=== PATIENT | female | born 1960 | race Caucasian/White ===

== ENCOUNTER 2017-11-20 01:51 | Inpatient (IN) | payer OTHER, MEDICARE ==
[~2017-11-20] VITALS: Ht 172.7 cm; Wt 64.9 kg
[~2017-11-20 01:51] MED LIST: ASPIRIN EC81 M1 PO; BACLOFEN10 M1 PO; CITRACAL + D M1 EACH PO; COLACE100 M1 PO; LEXAPRO5 M1 PO; LOPRESSOR100 M1 PO; MULTIPLE VITAM1 EACH; VITAMIN D31000 UNI1 PO
--- NOTE | 2017-11-20 11:36 | Operative Report ---
Operative/Inv Procedure Report Surgery Date: 11/20/17 Name of Procedure: C2-5 posterior laminectomy, C3-5 posterior lateral mass fusion with thiago oasys screws, rods, autograft, allograft, intraop fluoroscopy Pre-Operative Diagnosis: C2-5 stenosis with myelopathy Post-Operative Diagnosis: same Estimated Blood Loss: 50ml to 100ml Surgeon/Deckhand Fishing Vessel: Jaleesa BOB,Royer Klein MD Anesthesia: general endotracheal tube Monitors: neurophysiologic monitoring IV Fluids: 1500cc replaced with crystalloid Implants: thiago oasys Urine Output: 200cc via avitia Drains: med HV Specimens: none Complications: none Condition: stable Operative Indication: 57yo woman s/p extensive anterior cervical corpectomy and fusion C4-7 in past now with adjacent level high grade spinal stenosis at C2-5 and recurrent and progressive myelopathy now presents for posterior cervical decompression and lateral mass fusion after failed conservative treatment. Operative/Procedure Note Note: Patient was taken the operating room. After appropriate patient identification and surgical timeout, the patient had neurophysiologic monitoring leads placed and baseline recordings were obtained. She then underwent the smooth induction of general endotracheal anesthesia without incident with the neck in a neutral position. Monitoring was stable. A Avitia catheter was sterilely inserted. DVT prophylaxis was utilized throughout the case. Patient was given 2 g of IV kezol and 1 g of IV vancomycin in preoperative prophylaxis. With all tubes and lines secured in the blood pressure well controlled, the patient was placed in the [place] 3 point head fixation device was applied and carefully turned to the prone position on gel rolls taking care to ensure that all pressure points were well-padded. The neck was maintained in a neutral to slightly lordotic position and fixed to the table. Monitoring was stable with the patient to the prone position. Shoulders were retracted downward with tape. The posterior neck was widely prepped and draped in usual sterile fashion using povidone iodine solution. A vertical midline skin incision was marked from C2- C6 and infiltrated with 10 mL of local anesthetic. Skin incision was made with a 10 blade knife. Dissection was carried down through the subcutaneous tissue with the Bovie the ligamentum nuchae. Ligament nuchae was incised in the midline and a subperiosteal dissection of the cervical paravertebral muscles was performed bilaterally with the Bovie exposing underlying spinous processes lamina and facet joints bilaterally. We extended the exposure to the lateral aspect of the lateral masses from C3 to C5 bilaterally and self-retaining retractors were placed beneath the muscle. A [place] 4 elevator was placed in the presumed C3/4 facet joint and a lateral cervical x-ray was obtained and confirmed this to be the correct level. With the levels verified, we proceeded to decorticating the lateral masses and curetting out the facet joints. The drill was used to decoritcate the facet joints with the drill prior to screw insertion. Entry points for the lateral mass screws were selected from C3 to C5 bilaterally, medial to the midpoint of the lateral mass and marked with a jarvis bur. Screw holes were then drilled using the [employer] to a depth of 14 mm and with a 30 lateral and rostral angulation. All holes were palpated with a ball-tipped probe and showed no evidence of cortical breakthrough. A laminectomy extending from the inferior C2 to the rostral C5 level was performed using combination of the bone scalpel and Kerrison rongeurs. Thickened ligamentum flavum was stripped with the Kerrisons and An excellent decompression of the dural sac was completed and monitoring was stable. Bone was passed off to the back table and saved for arthrodesis. Hemostasis was obtained with irrigation and flowseal in the lateral epidural gutters. The facet joints of C3 4, C4 5 were packed with morcellated autograft packed bilaterally as well as over the dorsal aspect of the lateral masses which were also decorticated. We then placed a 3.5 x 14 mm screws bilaterally from C3 to C5 without complication. 40 mm titanium rods were then gently lordosed and top loaded into the screws from C3 to C5 bilaterally. Locking caps were placed. Screws were then finally tightened with an antitorque device. Meticulous hemostasis was achieved using combination of bipolar and Surgifoam. Neurophysiologic monitoring was noted to be stable following the decompression and placement of the instrumentation. Final xrays were obtained and confirmed excellent position of the instrumentation. The wound was copiously irrigated with sterile saline irrigation. A medium DWAYNE drain was placed in the wound and secured to the skin with a 2-0 nylon suture and then began wound closure. Deep muscle was reapproximated with interrupted 0 Vicryl suture. 20cc of exparel was used in the muscle. The ligamentum nuchae was reapproximated with interrupted 0 Vicryl suture and the subcutaneous tissue was irrigated and closed in layers with a 2-0 Vicryl suture. The skin was closed with silvino. The wound was cleaned and dried. Bacitracin and a sterile occlusive dressing was placed. Placed in a hard cervical collar, taken out of the [place] and returned to the supine position. She was taken out of the [place], awakened, extubated, and taken to PACU in stable condition. She was noted to be moving all 4 extremities at the completion of the case. All sponge, needle, and instrument counts were correct at the completion of the procedure 3. Neurophysiologic monitoring was stable. Discharge Disposition: PACU
--- NOTE | 2017-11-20 15:50 | RADIOLOGY REPORT ---
EXAMINATION: CR ABDOMEN/INTRAOPERATIVE FLUOROSCOPY CLINICAL INDICATION: C3 laminectomy with posterior fusion. COMPARISON: None. TECHNIQUE/FINDINGS: Fluoroscopic equipment was dedicated to the operating room for the performance of an intraoperative procedure. 3 spot films were acquired and are archived in PACS. Please refer to operative notes for procedural detail. FLUOROSCOPY TIME: 12 seconds IMPRESSION: Administrative dictation for intraoperative fluoroscopy and image archiving in PACS. Please refer to operative notes for details.
--- NOTE | 2017-11-20 16:51 | Operative Report ---
Operative/Inv Procedure Report Surgery Date: 11/20/17 Name of Procedure: C2 C3-C4-C5 laminectomy C3-4-5 posterior lateral segmental instrumentation using [place] lateral mass screws C3-4-5 posterior lateral fusion using autograft Placed in [place] fixation Fluoroscopic guidance Pre-Operative Diagnosis: Cervical spondylosis and myelopathy Post-Operative Diagnosis: Same Estimated Blood Loss: 200 Surgeon/Acid Operator: Royer Lazcano MD,Sandie Munoz Anesthesia: general endotracheal tube Operative/Procedure Note Note: After the successful administration of general endotracheal anesthesia all lines tubes and monitors were placed by the anesthesia team. The patient positioned prone in [place] fixation with pressure points padded. Palpate the spinous process of C2 through C5 the patient was prepped and draped in usual standard fashion. 10 cc of lidocaine with epinephrine was infiltrated in subcu tissues. #10 blade used to incise the skin. This was deepened to the cervical fascia with electrocautery the midline cervical fascia was divided and subperiosteal dissection was carried out exposing the spinous process lamina C3-C4-C5. The underside of C2 was also exposed. We identified the C3-4 joint with fluoroscopic guidance. We then used a high-speed drill to drill bilaterally at the mid position of the lateral masses of C3-4 and 5. These were deepened with a 14 mm drill. There were tapped and all holes were palpated to ensure circumferential bone. We then used the bone scalpel to cut troughs in the lamina of C3-C4 superior aspect of C5. The spinal lamellar complex was taken off after the ligament of flavum was elevated with a Kerrison punch and resected. The bone was taken to the back table and morselized. We then used a Kerrison punch to remove the undersurface of the lamina of C2 to ensure the spinal cord could fall away from the anterior compression at the C3-4 level. We then placed 14 mm Tita screws in the lateral mass of C3-4-5 the lateral masses and facet joints were decorticated and packed with morselized autograft precontoured a 40 mm jean-paul secured in place with the set screws were tightened down with the torque limiting seasonal driver. All bleeding was controlled with bipolar cautery.. Gelfoam was placed over the dura. Motor and sensation are stable. There was an irrigated through separate stab incisions and a #7 DWAYNE drain was left in place. The wound was closed with 0 Vicryl for muscle and fascia 2-0 Vicryl the deep dermis and skin was closed with silvino. Dry sterile dressing was applied. At the end the case patient taken out of [place] fixation all needle counts, sponges, and instruments were correct.
--- NOTE | 2017-11-20 17:43 | Admission Core Measures ---
Acute Coronary Syndrome (CM) ACS Core Measures Acute Coronary Syndrome Diagnosis No Congestive Heart Failure (NEW) CHF Core Measures Congestive Heart Failure Diagnosis No Cerebrovascular Accident CVA Core Measures CVA/TIA Diagnosis No Venous Thromboembolism VTE Core Soni (View Protocol) VTE Risk Factors Surgery No Mechanical VTE Prophylaxis d/t N/A MechProphylax Ordered No VTE Pharm Prophylaxis d/t NA PharmProphylax ordered Problem List As ranked by this Provider includes Assessment & Plan 1. Stenosis of cervical spine with myelopathy HOME MEDS Home Med List Aspirin (Ecotrin*) 81 MG TABLET.DR 1 TAB PO DAILY ANTI COAG (Reported) Baclofen 10 MG TABLET 1 TAB PO TID CEREBRAL PALSY (Reported) Calcium Citrate/Vitamin D3 (Citracal + D Maximum Caplet) 315 MG-250 UNIT TABLET 1 TAB PO TID SUPPLEMENT (Reported) Cholecalciferol (Vitamin D3) (Vitamin D3) 1,000 UNIT CAPSULE 1 CAP PO TID SUPPLEMENT (Reported) Docusate Sodium (Colace) 100 MG CAPSULE 1 CAP PO D CONSTIPATION (Reported) Escitalopram Oxalate (Lexapro) 5 MG TABLET 1 TAB PO DAILY MOOD (Reported) Metoprolol Tartrate (Lopressor) 100 MG TABLET 1 TAB PO BID HTN (Reported)
--- NOTE | 2017-11-20 17:55 | PN- Neurosurgical ---
Subjective Subjective: POSTOP CHECK Patient reports hoarseness. Otherwise, pain is well controlled. Denies numbness, tingling, chest pain or sob. Tolerating ice chips. Denies ambulating since surgery. Offers no other complaints. Objective Vital Signs and I&Os Intake & Output 11/20 1600 11/20 0800 11/20 0000 11/19 1600 11/19 0800 11/19 0000 Intake Total Output Total Balance Patient 130 lb Weight Physical Exam: Vitals - afebrile, vss Gen - alert an oriented x3, accompained by sister with hard collar in place in nad HEENT - hard collar in place, scant dressing on posterior neck with DWAYNE in place with 20 cc serosang drainage Cardiac - S1S2, murmur noted Lungs - CTAB Ext - motor and sensory intact, 4 extremities with good 5/5 SERINA, no edema or calf pain Assessment/Plan Assessment/Plan 57 F w/ a hx of CP, HTN and prior C4-7 fusion in 2008 complicated by PE who is s /p C2-C5 posterior laminectomy, C3-5 posterior lateral mass fusion with thiago oasys screws, rods, autograft, allograft, intraop fluoroscopy secondary to C2-5 stenosis with myelopathy, recovering well Advance to regular diet IVF overnight Pain regimen prn Home meds ordered - asa 81 on hold DVT ppx - alps, hsq in am Keep brace in place OOB ambulate w/ RW (baseline) DWAYNE to bulb suction D/c avitia in am Encourage IS Core Measures Venous Thromboembolism VTE Risk Factors Surgery No Mechanical VTE Prophylaxis d/t N/A MechProphylax Ordered No VTE Pharm Prophylaxis d/t NA PharmProphylax ordered
[2017-11-20 18:06] VITALS: BP 150/70
[2017-11-20 19:37] VITALS: BP 162/80
[2017-11-20 21:25] VITALS: BP 162/82
[2017-11-20 23:00] VITALS: BP 160/80
[2017-11-21 04:21] VITALS: BP 156/80
--- NOTE | 2017-11-21 07:42 | PN- Neurosurgical ---
Subjective Subjective: Pt doing well. Reports mild incisional post neck pain cntrolled with tylenol. Objective Vital Signs and I&Os Vital Signs Date Time Temp Pulse Resp B/P B/P Pulse O2 O2 Flow FiO2 Mean Ox Delivery Rate 11/21 0421 97.7 72 20 156/80 100 11/20 2300 98.2 64 24 160/80 94 11/20 2125 98.3 56 20 162/82 95 11/20 2029 94 154/78 11/20 1937 98.3 42 20 162/80 95 Room Air 11/20 1806 98.3 91 20 150/70 94 Intake & Output 11/21 0811/21 0000 11/20 1600 11/20 0811/20 0000 11/19 1600 Intake Total 640 330 Output Total 1010 940 Balance -370 -610 Intake, IV 640 150 Intake, Oral 180 Output, 60 40 Drainage Output, Urine 950 900 Patient 64.864 kg 58.967 kg Weight Weight Reported by Patient Measurement Method Physical Exam: AF, VSS awake and alert incision with min serosanguinous stain on dressing, no active drainage and flat DWAYNE with 60cc last shift neuro exam is stable with spastic quadreparesis unchanged from preop william po last night avitia out this am no LE edema or calf tenderness Current Medications: Current Medications Sig/Laura Start time Last Medication Dose Route Stop Time Status Admin Acetaminophen 650 MG Q4P PRN 11/20 1445 AC 11/21 PO 0615 Acetaminophen 0 .STK-MED ONE 11/20 1117 DC IV Baclofen 10 MG TID 11/20 2100 AC 11/20 PO 2030 Bisacodyl 10 MG DAILY NEEDED PRN 11/20 1445 AC PA Cefazolin Sodium 2 GM IQ8 11/21 0800 AC N/A 1 UNIT IV 11/22 0759 Cefazolin Sodium 2,000 MG ONCE 11/20 0000 DC IV 11/20 2359 Diazepam 5 MG Q8P PRN 11/20 1445 AC PO Docusate Sodium 100 MG BID 11/20 2100 AC 11/20 PO 2030 Escitalopram Oxalate 5 MG DAILY 11/21 09 AC PO Fentanyl Citrate 0 .STK-MED ONE 11/20 1117 DC .ROUTE Heparin Sodium 5,000 UNIT Q8 11/21 0600 AC 11/21 (Porcine) SC 0615 Hydromorphone HCl 1 MG Q3P PRN 11/20 2230 AC IV Hydromorphone HCl 1 MG Q4-6 PRN PRN 11/20 1500 DC IV Hydromorphone HCl 0 .STK-MED ONE 11/20 1118 DC .ROUTE Ketamine HCl 0 .STK-MED ONE 11/20 1118 DC .ROUTE Meperidine HCl 0 .STK-MED ONE 11/20 1441 DC .ROUTE Metoprolol Tartrate 100 MG BID 11/20 2100 AC 11/20 PO 2029 Midazolam HCl 0 .STK-MED ONE 11/20 1118 DC .ROUTE Ondansetron HCl 4 MG Q6P PRN 11/20 1445 AC IV Oxycodone/ 1 TAB Q4P PRN 11/20 223 AC Acetaminophen PO Oxycodone/ 2 TAB Q4P PRN 11/20 1445 AC Acetaminophen PO Ramelteon 8 MG AT BEDTIME NEED.. 11/20 1445 AC PO Sodium Chloride 1,000 ML Q12H 11/20 1500 AC 11/21 IV 11/21 1459 0616 Trimethobenzamide HCl 200 MG Q6P PRN 11/20 1445 AC IM Assessment/Plan Assessment/Plan Pt POD1 s/p post cervical lami and fusion for recurrent stenosis and myelopathy and doing well. Plan: -OOB today -PT -HLIV -reg diet -DVT prophylaxis -cont DWAYNE until less than 20cc per shift, abx until drain out -ISC prn if no void after 6hrs from avitia out and prn after -dc planning as pt to go to rehab Core Measures Venous Thromboembolism VTE Risk Factors Surgery No Mechanical VTE Prophylaxis d/t N/A MechProphylax Ordered No VTE Pharm Prophylaxis d/t NA PharmProphylax ordered Attending MD Review Statement Attending Statement Attending MD Statement: examined this patient, discuss w/resident/PA/MEDICAL ART THERAPIST, discussed with family, discussed w/nursing
[2017-11-21 07:51] VITALS: BP 150/80
--- NOTE | 2017-11-21 11:54 | ULTRASOUND REPORT ---
EXAMINATION: US TRIPLEX OF LOWER EXTREMITIES, BILATERAL CLINICAL INFORMATION: Postop DVT COMPARISON: None TECHNIQUE: Color-flow triplex imaging with spectral analysis and compression Doppler were performed on the lower extremities. FINDINGS: There is a small segment of the popliteal vein demonstrating an echogenic focus along the anterior aspect of the vein consistent with a nonocclusive thrombus. The deep veins are otherwise unremarkable. There is no Horne's cyst. IMPRESSION: Findings compatible with a small nonocclusive thrombus age-indeterminate in the popliteal vein Patient reports having had DVT in the past. No prior venous imaging available This critical result was discussed with Estefania Yuan approximately 11:50 AM on 11/21/2017 and it was ascertained that the content and urgency of the report was understood at the time of direct communication.
[2017-11-21 12:39] VITALS: BP 120/70
--- NOTE | 2017-11-21 13:40 | Cons- Vascular Surgery ---
General Information and HPI Consulting Request Date of Consult: 11/21/17 Requested By: Jaleesa BOB,Sandie Munoz Reason for Consult: RLE DVT Source of Information: patient Exam Limitations: no limitations History of Present Illness: This is a 57-year-old female here status post posterior C2 through C5 laminectomy, C3 through C5 fusion by Dr. Lazcano. She is a history of hypertension, CP and a previous back surgery about 10 years ago which was complicated by a postop DVT and PE and stroke. Prior to this admission she had a bilateral preop venous duplex which showed no evidence of DVT. Now on postop day 1 a DVT study was ordered which showed a small nonocclusive thrombus in the right popliteal vein. Patient is asymptomatic Allergies/Medications Allergies: Coded Allergies: No Known Allergies (11/19/17) Home Med List: Aspirin (Ecotrin*) 81 MG TABLET.DR 1 TAB PO DAILY ANTI COAG (Reported) Baclofen 10 MG TABLET 1 TAB PO TID CEREBRAL PALSY (Reported) Calcium Citrate/Vitamin D3 (Citracal + D Maximum Caplet) 315 MG-250 UNIT TABLET 1 TAB PO TID SUPPLEMENT (Reported) Cholecalciferol (Vitamin D3) (Vitamin D3) 1,000 UNIT CAPSULE 1 CAP PO TID SUPPLEMENT (Reported) Docusate Sodium (Colace) 100 MG CAPSULE 1 CAP PO D CONSTIPATION (Reported) Escitalopram Oxalate (Lexapro) 5 MG TABLET 1 TAB PO DAILY MOOD (Reported) Metoprolol Tartrate (Lopressor) 100 MG TABLET 1 TAB PO BID HTN (Reported) Multivit With Calcium,Iron,Min (Multiple Vitamins For Women) 1 EACH TABLET SUPPLEMENT (Reported) Past History Medical History Neurological: CVA EENT: hearing loss Cardiovascular: hypertension Respiratory: NONE Gastrointestinal: constipation Hepatic: NONE Renal: NONE Musculoskeletal: spinal stenosis Psychiatric: anxiety, depression Endocrine: NONE Blood Disorders: PE Cancer(s): NONE CORPORATE REAL ESTATE MANAGER/Reproductive: NONE Surgical History Pertinent Surgical History: laminectomy Psychosocial History Smoking Status: Unknown If Ever Smoked Review of Systems Review of Systems: As per HPI Exam & Diagnostic Data Vital Signs and I&O Vital Signs Date Time Temp Pulse Resp B/P B/P Pulse O2 O2 Flow FiO2 Mean Ox Delivery Rate 11/21 1239 99.4 82 18 120/70 96 11/21 1117 Room Air 11/21 0928 81 150/80 11/21 0751 98.5 81 20 150/80 96 11/21 0421 97.7 72 20 156/80 100 11/20 2300 98.2 64 24 160/80 94 11/20 2125 98.3 56 20 162/82 95 11/20 2029 94 154/78 11/20 1937 98.3 42 20 162/80 95 Room Air 11/20 1806 98.3 91 20 150/70 94 Intake & Output 11/21 1600 11/21 0800 11/21 0000 11/20 1600 11/20 0800 11/20 0000 Intake Total 640 330 Output Total 1010 940 Balance -370 -610 Intake, IV 640 150 Intake, Oral 180 Output, 60 40 Drainage Output, Urine 950 900 Patient 143 lb Weight Weight Reported by Patient Measurement Method Physical Exam: General- NAD neck- hard colalr in place, some dry sanguinous drainage on dressing. DWAYNE drain in place with minimal sanguinous drainage and bulb. Resperations- clear bialaterlly, no distress Cardiac-regular rate and rhythm Abdomen-soft, nontender with positive bowel sounds Extremities-Calves are soft bilaterally and non-tender. No erythema or swelling in lower extremities. Distal sensory and motor function is intact. Strength equal bilaterally. 2+ dorsalis pedis and radial pulses bilaterally Last 24 Hours of Labs: Laboratory Tests 11/21 1411 Chemistry Sodium (137 - 145 mmol/L) 137 Potassium (3.5 - 5.1 mmol/L) 4.3 Chloride (98 - 107 mmol/L) 103 Carbon Dioxide (22 - 30 mmol/L) 28 Anion Gap (5 - 16) 6 BUN (7 - 17 mg/dL) 14 Creatinine (0.5 - 1.0 mg/dL) 0.7 Estimated GFR (>60 ml/min) > 60 BUN/Creatinine Ratio (7 - 25 %) 20.0 Hematology CBC w Diff NO MAN DIFF REQ WBC (4.8 - 10.8 /CUMM) 10.8 RBC (4.20 - 5.40 /CUMM) 3.87 L Hgb (12.0 - 16.0 G/DL) 11.8 L Hct (37 - 47 %) 34.4 L MCV (81.0 - 99.0 FL) 89.0 MCH (27.0 - 31.0 PG) 30.6 MCHC (33.0 - 37.0 G/DL) 34.4 RDW (11.5 - 14.5 %) 12.6 Plt Count (130 - 400 /CUMM) 275 MPV (7.4 - 10.4 FL) 10.1 Gran % (42.2 - 75.2 %) 79.2 H Lymphocytes % (20.5 - 51.1 %) 10.1 L Monocytes % (1.7 - 9.3 %) 10.4 H Eosinophils % (0 - 5 %) 0.1 Basophils % (0.0 - 2.0 %) 0.2 Absolute Granulocytes (1.4 - 6.5 /CUMM) 8.6 H Absolute Lymphocytes (1.2 - 3.4 /CUMM) 1.1 L Absolute Monocytes (0.10 - 0.60 /CUMM) 1.1 H Absolute Eosinophils (0.0 - 0.7 /CUMM) 0 Absolute Basophils (0.0 - 0.2 /CUMM) 0 Imaging Results: EXAMINATION: US TRIPLEX OF LOWER EXTREMITIES, BILATERAL CLINICAL INFORMATION: Postop DVT COMPARISON: None TECHNIQUE: Color-flow triplex imaging with spectral analysis and compression Doppler were performed on the lower extremities. FINDINGS: There is a small segment of the popliteal vein demonstrating an echogenic focus along the anterior aspect of the vein consistent with a nonocclusive thrombus. The deep veins are otherwise unremarkable. There is no Horne's cyst. IMPRESSION: Findings compatible with a small nonocclusive thrombus age-indeterminate in the popliteal vein Patient reports having had DVT in the past. No prior venous imaging available This critical result was discussed with Estefania Yuan approximately 11:50 AM on 11/21/2017 and it was ascertained that the content and urgency of the report was understood at the time of direct communication. DICTATED BY: Kang Gonzalez MD DATE/TIME DICTATED:11/21/171145 TRANSPLANT REGISTERED NURSE:BABATUNDE DATE/TIME TRANSCRIBED:11/21/171145 Assessment/Plan Assessment/Plan Is a 57-year-old female status post posterior C2-5 laminectomy C3-5 fusion now with a postoperative nonocclusive DVT in the right popliteal vein. She is stable and asymptomatic. Patient is currently on heparin subcu, no further anticoagulation as per neurosurgery Recommending taking alps off the right lower extremity and elevating the legs. IVC filter is recommended, interventional radiology has been contacted and will place a retrievable IVC filter today. stat cbc and BMP. After filter is placed , compression hose can be worn. Patient is to follow-up with Dr. Ortiz or Dr. Sagastume in 2 weeks as an outpatient Consult Acknowledgment - Thank you for your consult request.
[2017-11-21 14:39] LABS: ABSOLUTE BASOPHIL COUNT 0 /CUMM (0.0-0.2); ABSOLUTE EOSINOPHIL COUNT 0 /CUMM (0.0-0.7); ABSOLUTE GRANULOCYTE CT 8.6 /CUMM (1.4-6.5); ABSOLUTE LYMPH COUNT 1.1 /CUMM (1.2-3.4); ABSOLUTE MONOCYTE COUNT 1.1 /CUMM (0.10-0.60); BASOPHIL % 0.2 % (0.0-2.0); EOSINOPHIL % 0.1 % (0-5); GRANULOCYTE % 79.2 % (42.2-75.2); HEMATOCRIT 34.4 % (37-47); MEAN CORPUSCULAR HGB 30.6 PG (27.0-31.0); MEAN CORPUSCULAR HGB CONC 34.4 G/DL (33.0-37.0); MEAN PLATELET VOLUME 10.1 FL (7.4-10.4); PLATELET COUNT 275 /CUMM (130-400); RBC DISTRIBUTION WIDTH 12.6 % (11.5-14.5); RED BLOOD CELL CT 3.87 /CUMM (4.20-5.40); WHITE BLOOD CELL COUNT 10.8 /CUMM (4.8-10.8)
[2017-11-21 16:00] VITALS: BP 130/80
--- NOTE | 2017-11-21 16:50 | INTERVENTIONAL RADIOLOGY RPT ---
EXAMINATION: 1. Inferior Venocavogram 2. Placement of Retrievable IVC filter under sonographic and fluoroscopic guidance CLINICAL INFORMATION: 57-year-old female with right lower extremity DVT. Patient recently had neck surgery and therefore cannot be anticoagulated. IVC filter requested. COMPARISON: None. ACCESS: Right common femoral vein. INTERVENTIONAL RADIOLOGIST: Jamin Gurrola M.D. SEDATION: Local 1% Lidocaine. Moderate sedation was not required for today's procedure. Ultrasound: Ultrasound was used to identify the right common femoral vein. The right common femoral vein was confirmed to be patent and real time imaging confirmed needle access into the right common femoral vein. An image was saved for permanent recording in PACS. FLUOROSCOPY TIME: 76 seconds DOSE AREA PRODUCT: 2.8 Gy-cm2 (viera-centimeter squared) CONTRAST: 40 mL Optiray 320 PROCEDURE IN DETAIL: Informed consent was obtained from the patient's conservator prior to the procedure. During this process, the procedure and potential alternatives were explained to the patient and her conservator, along with the intended outcome and benefits. The risks of the procedure, as well as the risk of not doing the procedure, were discussed. The patient and her conservator were given the opportunity to ask questions regarding the procedure. A signed consent form which documents this discussion was placed in the medical record. The patient was placed on the fluoroscopic table in the procedure room. A final timeout was performed. The right groin was sterilely prepped and draped. Maximum sterile barrier technique was maintained throughout the procedure. A puncture was performed of the right common femoral vein under direct sonographic visualization using a micropuncture kit. The filter introduction sheath was then advanced to the level of the iliac bifurcation over a Bentson wire. An inferior venacavogram was performed which demonstrated a patent, normal caliber IVC without evidence of thrombus or duplication. At this time, the filter introduction sheath was advanced to the level of deployment over the wire. A retrievable IVC filter was then deployed under continuous fluoroscopic visualization. The introduction sheath was removed and hemostasis was obtained at the right femoral venotomy site using manual pressure. A sterile dressing was placed. The patient tolerated the procedure well. There was no evidence complications. IMPRESSION: Successful placement of retrievable IVC filter. PLAN: 1. The patient was stable after the procedure and was transferred to the interventional recovery area. 2. The IVC filter may be removed if the high risk period for pulmonary embolus ceases or if systemic anticoagulation can administered without risk of complication. 3. The patient will follow up at the [facility] to assess timing of IVC filter removal if clinically appropriate.
[2017-11-21 20:00] VITALS: BP 132/64
[2017-11-21 23:58] VITALS: BP 140/82
[2017-11-22 03:46] VITALS: BP 142/80
--- NOTE | 2017-11-22 07:33 | PN- Neurosurgical ---
Subjective Subjective: pt in bed, no complaints of pain in neck or groin. toelrating regular diet. voiding. no nausea. no cp/sob. Objective Vital Signs and I&Os Vital Signs Date Time Temp Pulse Resp B/P B/P Pulse O2 O2 Flow FiO2 Mean Ox Delivery Rate 11/22 0346 97.8 75 22 142/80 96 Room Air 11/21 2358 97.7 75 20 140/82 96 Room Air 11/21 2055 62 132/64 08 2000 98.7 62 18 132/64 94 Room Air 11/21 1708 Room Air Room Air 11/21 1600 97.6 88 18 130/80 94 Room Air 11/21 1239 99.4 82 18 120/70 96 11/21 1117 Room Air 11/21 0928 81 150/80 11/21 0751 98.5 81 20 150/80 96 Intake & Output 11/22 0800 11/22 0000 11/21 1600 11/21 0800 11/21 0000 11/20 1600 Intake Total 746 308 2106 640 330 Output Total 320 939 557 2869 940 Balance 20 0 600 -370 -610 Intake, IV 100 100 200 640 150 Intake, Oral 240 350 800 180 Output, 20 50 60 40 Drainage Output, Urine 300 400 400 950 900 Patient 143 lb Weight Weight Reported by Patient Measurement Method Physical Exam: gen- NAD neck- some tenderness around incision. drain with about 3cc serosang drainage in bulb. output-20cc overnight. resp- clear cardiac- RRR abd- soft NT ext- distal sensory and motor function intact and at baseline per pt. strength equal bilaterally. 2+DP and raial pulses. calves are soft and NT, no erythema groin- left groin with clean dry dressing, minimally tender. no signs of hematoma or infection Assessment/Plan Assessment/Plan Pt POD1 s/p post cervical lami and fusion pod2 for recurrent stenosis and myelopathy with small post-op RLE dvt. Pt had IVC filter placed yesterday by IR. drain removed today. Erythema, blistering and some minimal drainage from incision. Wound cleaned with betadine swab and covered with clean non-occlusive dressing. Plan: -PT -reg diet -anticoagulation for DVT- hsq to continue for 1 week then will get a repeat DVT study in 5 days to reevaluate dvt to determine anticoagulation -DC drain but continue Vanco for another 24 hours as incision has surrounding erythema -To wear soft collar until clean pads come for hard collar -ISC prn if no void after 6hrs from avitia out and prn after -dc planning- pt to go to rehab tomorrow Core Measures Venous Thromboembolism VTE Risk Factors Surgery No Mechanical VTE Prophylaxis d/t N/A MechProphylax Ordered No VTE Pharm Prophylaxis d/t NA PharmProphylax ordered
--- NOTE | 2017-11-22 07:45 | PN- Neurosurgical ---
Subjective Subjective: Pt doing well this am. Awake and alert, doing puzzle book. Denies pain or other concerns this am. Objective Vital Signs and I&Os Vital Signs Date Time Temp Pulse Resp B/P B/P Pulse O2 O2 Flow FiO2 Mean Ox Delivery Rate 11/22 0346 97.8 75 22 142/80 96 Room Air 11/21 2358 97.7 75 20 140/82 96 Room Air 11/21 2055 62 132/64 08 2000 98.7 62 18 132/64 94 Room Air 11/21 1708 Room Air Room Air 11/21 1600 97.6 88 18 130/80 94 Room Air 11/21 1239 99.4 82 18 120/70 96 11/21 1117 Room Air 11/21 0928 81 150/80 11/21 0751 98.5 81 20 150/80 96 Intake & Output 11/22 0800 11/22 0000 11/21 1600 11/21 0800 11/21 0000 11/20 1600 Intake Total 587 104 0234 640 330 Output Total 320 976 891 5736 940 Balance 20 0 600 -370 -610 Intake, IV 100 100 200 640 150 Intake, Oral 240 350 800 180 Output, 20 50 60 40 Drainage Output, Urine 300 400 400 950 900 Patient 64.864 kg Weight Weight Reported by Patient Measurement Method Physical Exam: Pt is awake and alert sitting up in bed, bright and alert s/p IVC filter yest for RLE DVT, uneventful AF, VSS taking po well DWAYNE with 20cc overnight dressing with mild serosanguinous dc neuro exam is stable bilat UE, LE ambulated yest with family no LE edema Current Medications: Current Medications Sig/Laura Start time Last Medication Dose Route Stop Time Status Admin Acetaminophen 650 MG Q4P PRN 11/20 1445 AC 11/21 PO 06 Baclofen 10 MG TID 11/20 2099 AC 11/21 PO 2052 Bisacodyl 10 MG DAILY NEEDED PRN 11/20 1445 AC OR Cefazolin Sodium 2 GM IQ8 11/21 08 AC 11/22 N/A 1 UNIT IV 11/22 075 0016 Diazepam 5 MG Q8P PRN 11/20 1445 AC PO Docusate Sodium 100 MG BID 11/20 2100 AC 11/21 PO 2052 Escitalopram Oxalate 5 MG DAILY 11/21 09 AC 11/21 PO 926 Heparin Sodium 5,000 UNIT Q8 11/21 0600 AC 11/22 (Porcine) SC 0614 Hydromorphone HCl 1 MG Q3P PRN 11/20 2229 AC IV Ioversol 0 .STK-MED ONE 11/21 145 DC IV Lidocaine 0 .STK-MED ONE 11/21 145 DC .ROUTE Metoprolol Tartrate 100 MG BID 11/20 2100 AC 11/21 PO 2055 Ondansetron HCl 4 MG Q6P PRN 11/20 1445 AC IV Oxycodone/ 1 TAB Q4P PRN 11/20 223 AC Acetaminophen PO Oxycodone/ 2 TAB Q4P PRN 11/20 1445 AC Acetaminophen PO Ramelteon 8 MG AT BEDTIME NEED.. 11/20 144 AC PO Sodium Chloride 1,000 ML Q12H 11/20 1500 DC 11/21 IV 11/21 145 0616 Trimethobenzamide HCl 200 MG Q6P PRN 11/20 1445 AC IM Results Last 48 Hours of Labs: Laboratory Tests 11/21 1411 Chemistry Sodium (137 - 145 mmol/L) 137 Potassium (3.5 - 5.1 mmol/L) 4.3 Chloride (98 - 107 mmol/L) 103 Carbon Dioxide (22 - 30 mmol/L) 28 Anion Gap (5 - 16) 6 BUN (7 - 17 mg/dL) 14 Creatinine (0.5 - 1.0 mg/dL) 0.7 Estimated GFR (>60 ml/min) > 60 BUN/Creatinine Ratio (7 - 25 %) 20.0 Hematology CBC w Diff NO MAN DIFF REQ WBC (4.8 - 10.8 /CUMM) 10.8 RBC (4.20 - 5.40 /CUMM) 3.87 L Hgb (12.0 - 16.0 G/DL) 11.8 L Hct (37 - 47 %) 34.4 L MCV (81.0 - 99.0 FL) 89.0 MCH (27.0 - 31.0 PG) 30.6 MCHC (33.0 - 37.0 G/DL) 34.4 RDW (11.5 - 14.5 %) 12.6 Plt Count (130 - 400 /CUMM) 275 MPV (7.4 - 10.4 FL) 10.1 Gran % (42.2 - 75.2 %) 79.2 H Lymphocytes % (20.5 - 51.1 %) 10.1 L Monocytes % (1.7 - 9.3 %) 10.4 H Eosinophils % (0 - 5 %) 0.1 Basophils % (0.0 - 2.0 %) 0.2 Absolute Granulocytes (1.4 - 6.5 /CUMM) 8.6 H Absolute Lymphocytes (1.2 - 3.4 /CUMM) 1.1 L Absolute Monocytes (0.10 - 0.60 /CUMM) 1.1 H Absolute Eosinophils (0.0 - 0.7 /CUMM) 0 Absolute Basophils (0.0 - 0.2 /CUMM) 0 Recent Imaging Studies: EXAMINATION: US TRIPLEX OF LOWER EXTREMITIES, BILATERAL CLINICAL INFORMATION: Postop DVT COMPARISON: None TECHNIQUE: Color-flow triplex imaging with spectral analysis and compression Doppler were performed on the lower extremities. FINDINGS: There is a small segment of the popliteal vein demonstrating an echogenic focus along the anterior aspect of the vein consistent with a nonocclusive thrombus. The deep veins are otherwise unremarkable. There is no Horne's cyst. IMPRESSION: Findings compatible with a small nonocclusive thrombus age-indeterminate in the popliteal vein Patient reports having had DVT in the past. No prior venous imaging available Assessment/Plan Assessment/Plan Pt POD2 s/p C2-5 lami, C3-5 lat mass fusion for myelopathy in the setting of a h /o prior DVT with PE now with LE duplex with R LE DVT and negative preop duplex suggesting the clot is new. In light of her history and inability to further anticoagulate her in the early postop setting, a removable IVC filter was placed yest without complication. Plan: -OOB, mobilize -PT -dc drain, one more dose abx then dc -dressing change -[facility]await STR planning Core Measures Venous Thromboembolism VTE Risk Factors Surgery No Mechanical VTE Prophylaxis d/t N/A MechProphylax Ordered No VTE Pharm Prophylaxis d/t NA PharmProphylax ordered Attending MD Review Statement Attending Statement Attending MD Statement: examined this patient, discuss w/resident/PA/CLAIM AGENT, discussed w/nursing
--- NOTE | 2017-11-22 10:24 | Patient Discharge Instructions ---
Discharge Instructions General Discharge Information You were seen/treated for: Cervical spine stenosis with myelopathy You had these procedures: C2-5 posterior laminectomy, C3-5 posterior lateral mass fusion with thiago oasys screws, rods, autograft, allograft, intraop fluoroscopy Watch for these problems: Numbness or weakness in the extremities, signs of infection such as fever or flulike illness redness or drainage from the wound Call Surgeon to remove: Salma Do not soak the wound: Yes Daily wet to dry dressings: No No bath, but you may shower: Yes Other wound care: Nonocclusive dressing only, gauze and one strip of paper tape Special Instructions: Hard collar on at all times. Nonocclusive dressing, to be changed daily, monitor for wound infection, redness , drainage, call with any concerns. Patient was found to have a small nonocclusive DVT in the right lower extremity, popliteal vein, please continue heparin subcu 5000 units 3 times daily until 1 week postoperatively and then repeat a venous ultrasound at that time. Please send results to Dr. Alpa Lazcano and Dr. Ortiz/Dr. Sagastume. Patient also requires follow-up with vascular surgeon Dr. Ortiz or Mitesh within 2 weeks. Diet Continue normal diet: Yes Activity Full Activity/No Limits: No Activity Self Limited: Yes Pounds, do NOT lift more than: 5 Activity Limited to: Weight bear as tolerated Acute Coronary Syndrome Inclusion Criteria At DC or during hospital stay patient has or had the following: ACS DIAGNOSIS No Discharge Core Measures Meds if any: Prescribed or Continued at Discharge Meds if any: NOT Prescribed or Continued at Discharge Congestive Heart Failure Inclusion Criteria At DC or during hospital stay patient has or had the following: CHF DIAGNOSIS No Discharge Core Measures Meds if any: Prescribed or Continued at Discharge Meds if any: NOT Prescribed or Continued at Discharge Cerebrovascular accident Inclusion Criteria At DC or during hospital stay patient has or had the following: CVA/TIA Diagnosis No Discharge Core Measures Meds if any: Prescribed or Continued at Discharge Meds if any: NOT Prescribed or Continued at Discharge Venous thromboembolism Inclusion Criteria VTE Diagnosis Yes VTE Type Deep Venous Thrombosis VTE Confirmed by (Test) EXT BILATERAL VENOUS DOPP Discharge Core Measures - Per Current guidelines, there needs to be overlap - treatment for the first 5 days of Warfarin therapy. - If discharged on Warfarin prior to 5 days of - overlap therapy, the patient will need to be - assessed for post discharge needs including - *Post discharge parental anticoagulation - *Warfarin and/or parental anticoagulation education - *Follow up date to check INR post discharge At least 5 days overlap therapy as Inpatient Yes Meds if any: Prescribed or Continued at Discharge Warfarin No Note: Overlap Therapy is Warfarin and Anticoagulant Meds if any: NOT Prescribed or Continued at Discharge No Warfarin d/t Surgical Contraindication Comment heparin subcu x1wk, then dvtus
--- NOTE | 2017-11-22 10:37 | Surgical Discharge Summary ---
Visit Information Visit Dates Admission Date: 11/20/17 Discharge Date: 11/23/17 History of Present Illness Chief Complaint: Cervical stenosis with myelopathy Medical History Neurological: CVA EENT: hearing loss Cardiovascular: hypertension Respiratory: NONE Gastrointestinal: constipation Hepatic: NONE Renal: NONE Musculoskeletal: spinal stenosis Psychiatric: anxiety, depression Endocrine: NONE Blood Disorders: PE Cancer(s): NONE OUTSOLE TACKER/Reproductive: NONE History of MRSA: No History of VRE: No History of CDIFF: No Isolation History: Standard Surgical History Pertinent Surgical History: laminectomy Psychosocial History Where Do You Live? Home Who Do You Live With? Sister What is Your Primary Language? Sinhala Review of Systems: See HPI Hospital Course Course Attending Physician: Sandie Lazcano MD Primary Care Physician: Juan Manuel Aburto MD Hospital Course: Patient was admitted for C2-5 posterior laminectomy, C3-5 posterior lateral mass fusion with thiago oasys screws, rods, autograft, allograft, intraop fluoroscopy which was performed by Dr. Lazcano without complications. A drain was left in place and she was continued on antibiotics until the drain was removed. Patient was placed on DVT prophylaxis however she has a history of DVT in the postoperative period in the past and an ultrasound was ordered which revealed a nonocclusive thrombus in the right popliteal vein. Vascular surgery was consulted, Dr. Ortiz recommended IR placement of IVC filter which was performed that day. She was continued on heparin subcu. Patient was continued in a hard collar. She has a history of cerebral palsy and required physical therapy who recommended longterm facility upon discharge when medically stable. When the drainage minimized, the drain was removed. Patient's vital signs are stable, she is afebrile and deemed stable for discharge Complications: DVT as above Allergies: Coded Allergies: No Known Allergies (11/19/17) Significant Procedures: C2-5 posterior laminectomy, C3-5 posterior lateral mass fusion on 11/20/17 IVC Filter placed 11/21/17 Disposition Summary Disposition Principal Diagnosis: Cervical stenosis with myelopathy C2 through C5 status post C2-5 posterior laminectomy, C3-5 posterior lateral mass fusion with thiago oasys screws, rods, autograft, allograft, intraop fluoroscopy Additional Diagnosis: DVT left popliteal vein Discharge Disposition: SNF Discharge Instructions General Discharge Information Code Status: Full Code Patient's Diet: regular Patient's Activity: WBAT, no twisting or having lifting. Neck collar to stay on at all times Follow-Up Instructions/Appts: FU with Dr Lazcano in 2 weeks, 12/04/[address] Ortiz or Mitesh in 2 weeks, 12/04/17 To have Lower Extremity venous duplex in 1 week at [facility] to re-eval extent of R LE DVT Medications at Discharge Discharge Medications: Stop taking the following medications: Aspirin (Ecotrin*) 81 MG TABLET. ORAL DAILY Continue taking these medications: Multivit With Calcium,Iron,Min (Multiple Vitamins For Women) 1 EACH TABLET Escitalopram Oxalate (Lexapro) 5 MG TABLET 1 Tablet ORAL DAILY Baclofen (Baclofen) 10 MG TABLET 1 Tablet ORAL THREE TIMES DAILY Calcium Citrate/Vitamin D3 (Citracal + D Maximum Caplet) 315 MG-250 UNIT TABLET 1 Tablet ORAL THREE TIMES DAILY Docusate Sodium (Colace) 100 MG CAPSULE 1 Capsule ORAL Every Day Metoprolol Tartrate (Lopressor) 100 MG TABLET 1 Tablet ORAL TWICE DAILY Cholecalciferol (Vitamin D3) (Vitamin D3) 1,000 UNIT CAPSULE 1 Capsule ORAL THREE TIMES DAILY Start taking the following new medications: Acetaminophen (Tylenol) 325 MG TABLET 650 Milligram ORAL EVERY 4 HOURS NEEDED as needed for pain 1-3 or fever > 101 Qty = 30 No Refills Diazepam (Diazepam) 5 MG TABLET 5 Milligram ORAL EVERY 8 HOURS NEEDED as needed for SPASMS Qty = 30 No Refills Heparin Sodium,Porcine (Heparin Sodium) 5,000 UNIT/ML VIAL 5,000 Unit SC EVERY 8 HOURS Qty = 21 No Refills Oxycodone HCl/Acetaminophen (Percocet 5-325 MG Tablet) 5 MG-325 MG TABLET 1-2 Tablet ORAL EVERY 4 HOURS NEEDED as needed for PAIN , SEVERE Qty = 36 No Refills Cephalexin (Keflex) 500 MG CAPSULE 1 Capsule ORAL 4 TIMES JOSE ALBERTO Qty = 28 No Refills Copies To: Lamonte BOB,Juan Manuel
[2017-11-22] MEDS ORDERED: DIAZEPAM5 M1 PO (10:40)
[2017-11-22] MEDS ORDERED: TYLENOL325 M1 PO (10:40)
[2017-11-22] MEDS ORDERED: PERCOCET 5-3251 EACH PO (10:40)
[2017-11-22] MEDS ORDERED: HEPARIN SO5000 UNIT3 SC (10:40)
[2017-11-22 15:10] VITALS: BP 120/56
[2017-11-22 22:58] VITALS: BP 154/70
[2017-11-23 06:16] VITALS: BP 138/80
--- NOTE | 2017-11-23 07:13 | PN- Neurosurgical ---
Subjective Subjective: Pt looks well this am. Has no complaints. Denies pain or any concerns. Objective Vital Signs and I&Os Vital Signs Date Time Temp Pulse Resp B/P B/P Pulse O2 O2 Flow FiO2 Mean Ox Delivery Rate 11/23 0616 97.8 84 20 138/80 94 Room Air 11/228 99.7 84 20 154/70 96 Room Air 11/22 2037 92 150/90 11/22 1510 98.8 88 18 120/56 95 11/22 09 75 142/80 Intake & Output 11/23 0000 11/22 1600 11/22 0811/22 0000 11/21 1600 Intake Total 800 870 176 3239 Output Total 500 320 450 400 Balance -500 800 20 0 600 Intake, IV 100 100 200 Intake, Oral 800 240 350 800 Output, 20 50 Drainage Output, Urine 500 300 400 400 Physical Exam: AF, VSS incision imporved this am. less erythema. Blisters have resolved. flat and dry. Dressing pristine. neuro exam is stable. worked with PT yest william po, voiding on own no LE edema Current Medications: Current Medications Sig/Laura Start time Last Medication Dose Route Stop Time Status Admin Acetaminophen 650 MG Q4P PRN 11/20 1445 AC 11/21 PO 0615 Baclofen 10 MG TID 11/20 2099 AC 11/22 PO 2038 Bisacodyl 10 MG DAILY NEEDED PRN 11/20 1445 AC AR Cefazolin Sodium 2 GM IQ8 11/21 0800 DC 11/22 N/A 1 UNIT IV 11/22 0759 0016 Diazepam 5 MG Q8P PRN 11/20 1445 AC PO Docusate Sodium 100 MG BID 11/20 2099 AC 11/22 PO 2037 Escitalopram Oxalate 5 MG DAILY 11/21 09 AC 11/22 PO 918 Heparin Sodium 5,000 UNIT Q8 11/21 06 AC 11/23 (Porcine) SC 0459 Hydromorphone HCl 1 MG Q3P PRN 11/20 2229 AC IV Metoprolol Tartrate 100 MG BID 11/20 2099 AC 11/22 PO 2037 Ondansetron HCl 4 MG Q6P PRN 11/20 1445 AC IV Oxycodone/ 1 TAB Q4P PRN 11/20 2229 AC Acetaminophen PO Oxycodone/ 2 TAB Q4P PRN 11/20 1445 AC Acetaminophen PO Patient Medication 1 ED ONE ONE 11/22 1815 DC Teaching ED 11/22 181 Ramelteon 8 MG AT BEDTIME NEED.. 11/20 1445 AC PO Trimethobenzamide HCl 200 MG Q6P PRN 11/20 1445 AC IM Vancomycin HCl 1,000 MG Q18H 11/22 1015 AC 11/23 Sodium Chloride 250 ML IV 11/23 1012 0452 Results Last 48 Hours of Labs: Laboratory Tests 11/21 1411 Chemistry Sodium (137 - 145 mmol/L) 137 Potassium (3.5 - 5.1 mmol/L) 4.3 Chloride (98 - 107 mmol/L) 103 Carbon Dioxide (22 - 30 mmol/L) 28 Anion Gap (5 - 16) 6 BUN (7 - 17 mg/dL) 14 Creatinine (0.5 - 1.0 mg/dL) 0.7 Estimated GFR (>60 ml/min) > 60 BUN/Creatinine Ratio (7 - 25 %) 20.0 Hematology CBC w Diff NO MAN DIFF REQ WBC (4.8 - 10.8 /CUMM) 10.8 RBC (4.20 - 5.40 /CUMM) 3.87 L Hgb (12.0 - 16.0 G/DL) 11.8 L Hct (37 - 47 %) 34.4 L MCV (81.0 - 99.0 FL) 89.0 MCH (27.0 - 31.0 PG) 30.6 MCHC (33.0 - 37.0 G/DL) 34.4 RDW (11.5 - 14.5 %) 12.6 Plt Count (130 - 400 /CUMM) 275 MPV (7.4 - 10.4 FL) 10.1 Gran % (42.2 - 75.2 %) 79.2 H Lymphocytes % (20.5 - 51.1 %) 10.1 L Monocytes % (1.7 - 9.3 %) 10.4 H Eosinophils % (0 - 5 %) 0.1 Basophils % (0.0 - 2.0 %) 0.2 Absolute Granulocytes (1.4 - 6.5 /CUMM) 8.6 H Absolute Lymphocytes (1.2 - 3.4 /CUMM) 1.1 L Absolute Monocytes (0.10 - 0.60 /CUMM) 1.1 H Absolute Eosinophils (0.0 - 0.7 /CUMM) 0 Absolute Basophils (0.0 - 0.2 /CUMM) 0 Assessment/Plan Assessment/Plan Pt stable s/p C2-5 lami and C3-5 posterior spinal fusion with stable neuro exam. Wound improved this am and blisters resolved. Plan: -to STR today -would give keflex 500 po qid for 7 days -fu with me 2 weeks for wound check, silvino out -soft collar for now -cont hep sq tid at STR -needs fu with vascular surgery as oupt for IVC filter and DVT fu -repeat LE duplex in 1 week to rule out clot progression Core Measures Venous Thromboembolism VTE Risk Factors Surgery No Mechanical VTE Prophylaxis d/t N/A MechProphylax Ordered No VTE Pharm Prophylaxis d/t NA PharmProphylax ordered
[2017-11-23] MEDS ORDERED: KEFLEX500 M1 PO (08:56)
[2017-11-23 08:59] LABS: ABSOLUTE BASOPHIL COUNT 0.1 /CUMM (0.0-0.2); ABSOLUTE EOSINOPHIL COUNT 0 /CUMM (0.0-0.7); ABSOLUTE GRANULOCYTE CT 7.3 /CUMM (1.4-6.5); ABSOLUTE LYMPH COUNT 1.6 /CUMM (1.2-3.4); ABSOLUTE MONOCYTE COUNT 1.2 /CUMM (0.10-0.60); BASOPHIL % 0.5 % (0.0-2.0); EOSINOPHIL % 0.4 % (0-5); GRANULOCYTE % 71.7 % (42.2-75.2); HEMATOCRIT 34.3 % (37-47); MEAN CORPUSCULAR HGB 30.8 PG (27.0-31.0); MEAN CORPUSCULAR HGB CONC 34.6 G/DL (33.0-37.0); MEAN CORPUSCULAR VOLUME 88.9 FL (81.0-99.0); MEAN PLATELET VOLUME 10.2 FL (7.4-10.4); PLATELET COUNT 244 /CUMM (130-400); RBC DISTRIBUTION WIDTH 12.4 % (11.5-14.5); RED BLOOD CELL CT 3.86 /CUMM (4.20-5.40); WHITE BLOOD CELL COUNT 10.2 /CUMM (4.8-10.8)
[2017-11-23] MEDS ORDERED: ROBAXIN500 M1 PO (13:46)
[2017-11-23] MEDS ORDERED: PERCOCET 5-3251 EACH PO (13:47)
[2017-11-23 14:50] VITALS: BP 140/82
== END 2017-11-23 15:23 | DRG 472 ==
LOC: 2NA 01:51 → SDA 01:51 → ENRESERV 15:57 → ENTRNSPT 16:51 → EDTRNSPT 17:14 → EDTRNSPTSTS 17:14 → 2NA 17:21 → CMPTRNSPT 17:37 → ENPENDDIS 11-23 10:07 → ENTRNSPT 11-23 14:59 → EDTRNSPTSTS 11-23 15:07 → EDTRNSPT 11-23 15:07 → 2NA 11-23 15:23 → CMPTRNSPT 11-23 15:35
PROVIDERS: Physician Assistant Surgical
PROC: 00NW0ZZ Release Cervical Spinal Cord, Open Approach (ICD-10-PCS; principal; 2017-11-20)
PROC: 0RG2071 Fusion of 2 or more Cervical Vertebral Joints with Autologous Tissue Substitute, Posterior Approach, Posterior Column, Open Approach (ICD-10-PCS; principal; 2017-11-20)
PROC: 06H03DZ Insertion of Intraluminal Device into Inferior Vena Cava, Percutaneous Approach (ICD-10-PCS; principal; 2017-11-20)
PROC: 0RB30ZZ Excision of Cervical Vertebral Disc, Open Approach (ICD-10-PCS; principal; 2017-11-20)
DX: M48.02 Spinal stenosis, cervical region (principal); G95.89 Other specified diseases of spinal cord; I82.431 Acute embolism and thrombosis of right popliteal vein; I10 Essential (primary) hypertension; M62.81 Muscle weakness (generalized); R49.0 Dysphonia; G80.9 Cerebral palsy, unspecified; Z86.73 Personal history of transient ischemic attack (TIA), and cerebral infarction without residual deficits; F32.9 Major depressive disorder, single episode, unspecified; F41.9 Anxiety disorder, unspecified
CPT/HCPCS: 2NAP; 36415; 36592; 76000; 77001; 82436; 87071; 87086; 93970; 97116-GO; 97162-GP; 97530-GO; C1713; C1725; C1769; C9290; J0131; J0690; J1644; J2001; J2405; J3250; J3370; J7040; Q9967